=== PATIENT | female | born 1950 | race Caucasian/White ===

== ENCOUNTER → 2017-02-08 | Outpatient (CLI) | payer MEDICARE | END | disposition disaster alternative care site (69) | LOC: GBCOE 07:58 | DX: Z12.31 Encounter for screening mammogram for malignant neoplasm of breast (principal) | CPT/HCPCS: G0202 ==

== ENCOUNTER → 2017-02-12 | Outpatient (CLI) | payer MEDICARE | END | disposition disaster alternative care site (69) | LOC: GDIC 10:08 | DX: E11.9 Type 2 diabetes mellitus without complications (principal) | CPT/HCPCS: G0108 ==

== ENCOUNTER → 2017-02-14 | Outpatient (CLI) | payer MEDICARE | END | disposition disaster alternative care site (69) | LOC: GNUT 12:50 | DX: E11.9 Type 2 diabetes mellitus without complications (principal) ==

== ENCOUNTER → 2017-03-21 | Outpatient (CLI) | payer MEDICARE | LOC: GNUT 08:53 | DX: E11.9 Type 2 diabetes mellitus without complications (principal) | CPT/HCPCS: G0270 ==